=== PATIENT | female | born 1990 | race Caucasian/White ===

== ENCOUNTER 2016-12-09 08:19 | Emergency (ER) | payer MEDICAID, OTHER ==
[~2016-12-09] VITALS: Ht 154.9 cm; Wt 82.0 kg
[~2016-12-09 08:19] MED LIST: HYDRO2.5%T TOP; IBUP600 PO; OXYC1SOL5 PO; PERI8.6T PO; PREN1TAB30
[2016-12-09 08:22] VITALS: BP 159/99; PULSE 89; RESP 18; TEMP 98.2; O2SAT 98
--- NOTE | 2016-12-09 08:45 | PD ---
HPI Chief Complaint: Injury Time Seen by Provider: 08:45 Travel History International Travel<30 days: No Contact w/Intl Traveler<30days: No Traveled to known affect area: No History of Present Illness HPI 26-year-old female presents emergency department for evaluation of bilateral foot pain. Patient reports prior to arrival she was walking down her wooden steps carrying her child when she slipped stubbing both feet onto a wooden step. It caused immediate pain in the left great toe and toenail injury to the right great toe. She did not fall to the ground. She sustained no other injuries. She denies numbness/tingling/weakness in the 70s. Patient has pain with weightbearing. No alleviating factors. Severity 7 out of 10. PFSH Past Medical History Medical History: Denies Significant Hx Cardiovascular Problems: No (HTN [place] ) Diabetes: No ([place] ) Tetanus Vaccination: < 5 Years Influenza Vaccination: No ?: Not LMP: 11/2016 : 2 Para: 2 Past Surgical History Gynecologic Surgery: Yes (TUBAL LIGATION) Social History Alcohol Use: No Tobacco Use: Yes (1/2 PPD) Substance Use: No ( ) Allergies-Medications (Allergen,Severity, Reaction): Coded Allergies: No Known Allergies (Verified , 12/09/16) Reported Meds & Prescriptions Reported Meds & Active Scripts Active Ultram (Tramadol HCl) 50 Mg Tab 50 Mg PO Q6H PRN Review of Systems Except as stated in HPI: all other systems reviewed are Neg Physical Exam Narrative GENERAL: Well-nourished, well-developed patient. SKIN: Focused skin assessment warm/dry. Right great toe partial nail avulsion. Right second digit toenail injury without avulsion. HEAD: Normocephalic. EYES: No scleral icterus. No injection or drainage. NECK: Supple, trachea midline. No JVD or lymphadenopathy. CARDIOVASCULAR: Regular rate and rhythm without murmurs, gallops, or rubs. RESPIRATORY: Breath sounds equal bilaterally. No accessory muscle use. GASTROINTESTINAL: Abdomen soft, non-tender, nondistended. MUSCULOSKELETAL: No cyanosis, or edema. Notable tenderness and swelling to the left great toe. Right great toe partial nail avulsion. Right second digit toenail injury without avulsion. No deformity. Extremities are neurovascularly intact. BACK: Nontender without obvious deformity. No CVA tenderness. Data Data Last Documented VS Vital Signs Date Time Temp Pulse Resp B/P Pulse Ox O2 Delivery O2 Flow Rate FiO2 12/09/16 08:40 Room Air 12/09/16 08:22 98.2 89 18 159/99 98 Orders Foot, Limited (2vws) (12/09/16 ) Tetanus/Diphtheria Tox Adult (Tetanus/Di (12/09/16 09:45) Shoe Post Op (12/09/16 ) Crutches (12/09/16 09:45) MDM Medical Decision Making Medical Screen Exam Complete: Yes Emergency Medical Condition: Yes Differential Diagnosis Toenail avulsion, contusion, toe fracture, toe sprain Narrative Course 26-year-old female with chief complaint of bilateral foot pain. Patient sustained injuries to left and right great toes caused by stubbing injury. Right great toe is partial nail avulsion with a horizontal crack through the toenail. This portion of the toenail will be removed. X-ray pending of left great toe to rule out fracture. X-ray of left foot reveal distal phalanx fracture of great toe. Postop shoe given to patient. Prescription for Ultram patient referred to podiatry for follow-up. Patient agrees to plan Procedures Procedure Narrative Toenail removal: Digital block performed with 2 cc of 1% lidocaine Location right great toe Horizontal crack midway through toenail causing almost full toenail avulsion. Using hemostats distal portion of toenail was removed. Patient tolerated procedure well. Sterile dressing applied. Diagnosis Primary Impression: Toe fracture, left Qualified Code: S92.402A - Closed fracture of phalanx of left great toe, physeal involvement unspecified, unspecified phalanx, initial encounter Additional Impression: Toenail avulsion Qualified Code: S91.209A - Toenail avulsion, initial encounter Referrals: Claim Administrator Primary Care Physician Additional Instructions: With a postop shoe as directed Use crutches until weightbearing as possible Change the dressing to the right great toe daily. Take [id number] Tylenol and/or Motrin as needed for pain. Ice and elevate the extremity. Follow-up the primary care doctor/podiatry for recheck. Scripts Tramadol (Ultram)50 Mg Tab50 Mg PO Q6H PRN (PAIN) #15 TAB Ref 0 Prov:Cindy Campbell 12/09/16 Disposition: 01 DISCHARGE HOME Condition: Stable Cindy Campbell Dec 09, 2016 08:45
[2016-12-09] MEDS ORDERED: ULTR50TA5 PO (09:41)
[2016-12-09] MEDS ORDERED: TETANUS/DIPHTHERIA TOXOID ADULT 0.5 ML VIAL IM ONE (09:45)
--- NOTE | 2016-12-09 10:04 | RADRPT ---
EXAM DATE/TIME: 12/09/2016 08:54 [facility] COMPARISON: No previous studies available for comparison. INDICATIONS : Tripped with impact to left great toe. MEDICAL HISTORY : None. SURGICAL HISTORY : None. ENCOUNTER: Initial ACUITY: 1 day PAIN SCORE: 10/10 LOCATION: Left hallux FINDINGS: There is an acute nondisplaced fracture involving the base of the left first distal phalanx with invo lvement of the articular surface. CONCLUSION: Acute nondisplaced fracture involving the base of the left first distal phalanx with involvement of t he articular surface. Pravin Beckman MD on December 09, 2016 at 9:19 Board Certified Radiologist. This report was verified electronically.
== END 2016-12-09 10:15 | disposition home or self-care (01) ==
LOC: NEPK 08:19
DX: S92.402A Displaced unspecified fracture of left great toe, initial encounter for closed fracture (principal); S91.202A Unspecified open wound of left great toe with damage to nail, initial encounter; W22.09XA Striking against other stationary object, initial encounter; Y93.01 Activity, walking, marching and hiking
CPT/HCPCS: 11730; 73620; 90471; 90714; 99283; E0113; L3260

== ENCOUNTER 2017-09-29 07:35 | Emergency (ER) | payer OTHER ==
[~2017-09-29] VITALS: Ht 154.9 cm; Wt 78.0 kg
[~2017-09-29 07:35] MED LIST changes: -HYDRO2.5%T TOP; -IBUP600 PO; -OXYC1SOL5 PO; -PERI8.6T PO; -PREN1TAB30; +TRAM50 PO
[2017-09-29 07:43] VITALS: BP 139/78; PULSE 88; RESP 15; TEMP 98.9; O2SAT 100
[2017-09-29] MEDS ORDERED: POLY10O LEFT EYE (08:19)
--- NOTE | 2017-09-29 08:19 | PD ---
HPI Chief Complaint: Eye Problems/Injury Time Seen by Provider: 08:06 Travel History International Travel<30 days: No Contact w/Intl Traveler<30days: No Traveled to known affect area: No History of Present Illness HPI 27-year-old female presents to the emergency department with complaint of left eye redness, drainage, itchiness 2 days. Her nephew had pinkeye and she thinks she contracted it from him. Reports waking up with her eye crusted shut yesterday morning and this morning. Denies recent illness to include nasal congestion, cough, ear pain, sore throat. Denies fever, vomiting. Denies change in vision. Denies eye trauma. Denies eye pain. Says it is just irritated and itchy. Has tried tigg-uys-vflbacc pinkeye eyedrops. No known relieving or aggravating factors. Symptoms are mild in severity. No primary care provider. No known allergies. Denies significant past medical history. Has no other medical complaints. No other modifying factors or associated signs and symptoms. [facility] Past Medical History Medical History: Denies Significant Hx Cardiovascular Problems: No (HTN [place] ) Diabetes: No ([place] ) Tetanus Vaccination: < 5 Years ?: Not LMP: 09/21/17 : 2 Para: 2 Tubal Ligation: Yes Past Surgical History Gynecologic Surgery: Yes (TUBAL LIGATION) Social History Alcohol Use: No Tobacco Use: Yes (1/2 PPD) Substance Use: No ( ) Allergies-Medications (Allergen,Severity, Reaction): Coded Allergies: No Known Allergies (Verified Adverse Reaction, Unknown, 09/29/17) Reported Meds & Prescriptions Reported Meds & Active Scripts Active Polytrim Opth Drops (Polymyxin/Trimethoprim Sulfate) 10,000-0.1 Unit/Ml-% Soln 2 Drop LEFT EYE Q6HR 7 Days Review of Systems Except as stated in HPI: all other systems reviewed are Neg Physical Exam Narrative GENERAL: Well-nourished, well-developed female patient, in no acute distress; afebrile, nontoxic-appearing SKIN: Warm and dry. HEAD: Atraumatic. Normocephalic. EYES: Pupils equal and round at 3 mm with brisk reaction. PERRLA. EOMI. left lid eversion with no foreign body noted. Left eye with scleral erythema and without lid edema. No orbital tenderness, erythema or cellulitis. Bilateral eye without photophobia. No consensual photophobia. No scleral icterus. Clear drainage to left eye. ENT: Mucosa pink and moist. Airway patent. EARS: Bilateral pinnae and external canals appear within normal limits. NECK: Trachea midline. No lymphadenopathy. CARDIOVASCULAR: Regular rate. RESPIRATORY: No accessory muscle use. GASTROINTESTINAL: Flat. NEUROLOGICAL: Awake and alert. Oriented 3. No obvious cranial nerve deficits. Motor grossly within normal limits. Normal speech. PSYCHIATRIC: Appropriate mood and affect; insight and judgment normal. Data Data Last Documented VS Vital Signs Date Time Temp Pulse Resp B/P (MAP) Pulse Ox O2 Delivery O2 Flow Rate FiO2 09/29/17 07:43 98.9 88 15 139/78 (98) 100 Orders Orders Ed Discharge Order (09/29/17 08:19) [facility] Medical Decision Making Medical Screen Exam Complete: Yes Emergency Medical Condition: Yes Medical Record Reviewed: Yes Differential Diagnosis Viral conjunctivitis, bacterial conjunctivitis, allergic conjunctivitis Narrative Course 27-year-old female physical exam and HPI consistent with left eye conjunctivitis. Polytrim eyedrops prescribed for home. Work release provided. Instructed patient to follow up with primary care provider. Patient verbalizes understanding and agreement with treatment plan. Patient is medically cleared and stable for discharge. Discussed reasons to return to the emergency department. Patient agrees with treatment plan. The patients vital signs are stable and the patient is stable for outpatient follow-up and treatment. Patient discharged home, stable and in no acute distress. Diagnosis Primary Impression: Conjunctivitis, left eye Qualified Codes: H10.9 - Unspecified conjunctivitis Referrals: [facility] Primary Care Physician Patient Instructions: Conjunctivitis (ED), General Instructions Departure Forms: Tests/Procedures, Work Release Additional Instructions: Conjunctivitis is contagious Use antibiotic eye drops as prescribed Apply warm or cool compresses to both eyes for a few minutes several times daily to minimize irritation Avoid triggers, such as allergens, that may irritate your eyes Wash your hands frequently Do not share washcloths, towels, pillows, or any other material that has touched your eyes with any other household members Follow-up with your primary care provider Follow-up with ophthalmology as needed Return to the emergency department immediately with worsening of symptoms Med/Other Pt SpecificInfo: Prescription(s) given Scripts Polymyxin B-Trimethoprim Opth Drops (Polytrim Opth Drops) 10,000-0.1 Unit/Ml-% Soln 2 DROP LEFT EYE Q6HR for Mgmt Bacterial Infection for 7 Days, #1 BOTTLE 0 Refills Prov: Candida Schmitt 09/29/17 Disposition: 01 DISCHARGE HOME Condition: Stable Candida Schmitt September 29, 2017 08:19
== END 2017-09-29 08:49 | disposition home or self-care (01) ==
LOC: NEPD 07:35
DX: H10.9 Unspecified conjunctivitis (principal); F17.200 Nicotine dependence, unspecified, uncomplicated
CPT/HCPCS: 99283